=== PATIENT | female | born 1985 | race Caucasian/White ===

== ENCOUNTER 2022-05-13 10:59 | Emergency (ER) | payer OTHER ==
[2022-05-13 11:06] VITALS: BP 118/53; PULSE 73; RESP 18; TEMP 98.4; BMI 33.2
[2022-05-13] MEDS ORDERED: ACETAMINOPHEN 325 MG TABLET (FP) PO ONE (11:07)
== END 2022-05-13 11:51 | disposition home or self-care (01) ==
LOC: FER 10:59
DX: M54.2 Cervicalgia (principal)
CPT/HCPCS: 99283-25